=== PATIENT | female | born 1980 | race Caucasian/White ===

== ENCOUNTER → 2016-12-16 | Outpatient (CLI) | payer BC ==
[~2016-12-16] MED LIST: AMOX875T PO; CETI10TA84 PO; ESCI1TAB9 PO; FEXO1TAB46 PO; HYDR12.56 PO; IPRA1AER2 INH; MOME100A INH; MOME200A INH; MONT1TAB3 PO; NASONEX; NORE5TAB5 PO; OMEP20CA9 PO; RANI300T PO; SPRIN/30 INH
== END | disposition home or self-care (01) ==
LOC: C.LAB 07:34
PROVIDERS: ATTEND Nutritionist
DX: R53.83 Other fatigue (principal)

== ENCOUNTER 2017-02-03 20:26 | Emergency (ER) | payer BC ==
[~2017-02-03] VITALS: Ht 170.2 cm; Wt 59.1 kg
[~2017-02-03 20:26] MED LIST changes: -CETI10TA84 PO; -MOME200A INH; -NASONEX; -NORE5TAB5 PO; -SPRIN/30 INH
[2017-02-03 20:40] VITALS: TEMP 36.8; Ht 170.2 cm; Wt 59.1 kg
[2017-02-03] MEDS ORDERED: MOME200A INH (21:05)
[2017-02-03] MEDS ORDERED: SPRIN/30 INH (21:07)
[2017-02-03 21:26] LABS: HEMATOCRIT 38.2 % (37-47); MEAN PLATELET VOLUME 12.5 fL (7.4-10.4); PLATELET COUNT 127 K/uL (130-400); RED BLOOD COUNT 3.82 M/uL (4.2-5.4); WHITE BLOOD COUNT 6.34 K/uL (4.8-10.8)
[2017-02-03 21:41] LABS: BUN/CREATININE RATIO 23.9 (10-20); CALCIUM 8.4 mg/dl (8.5-10.1); CREATININE 0.89 mg/dl (0.60-1.20); POTASSIUM 3.5 mmol/L (3.5-5.1)
[2017-02-03 21:50] LABS: BASO % 0.2 %; BASO ABS # 0.01 K/uL (0-0.2); COMPLETE YES; EOS % 0.6 %; IG% 0.2 %; LARGE PLATELETS 1+; LYMPH % 24.6 %; LYMPH ABS # 1.56 K/uL (1.2-3.4); MONO % 5.2 %; NEUT % 69.2 %
[2017-02-03] MEDS ORDERED: SODIUM CHLORIDE 0.9% 1000ML 1,000 ML IV STA (22:12)
--- NOTE | 2017-02-03 22:12 | DIAGNOSTIC IMAGING REPORT ---
ULTRASOUND RIGHT UPPER EXTREMITY VENOUS CLINICAL HISTORY: Right arm swelling. COMPARISON STUDY: No priors. TECHNIQUE: Real-time, grayscale, and color Doppler sonography of the deep veins of the right upper extremity is performed. Compression and augmentation were utilized. FINDINGS: There is no sonographic evidence of deep venous thrombosis identified in the right upper extremity. The right internal jugular, axillary, and brachial veins are patent and normally compressible. Normal venous waveforms and augmentation are seen within the right subclavian vein. The cephalic and basilic veins are clear. The visualized radial and ulnar veins are patent. There is soft tissue edema and fluid seen around an edematous appearing muscle at the site of pain. IMPRESSION: 1. There is no sonographic evidence of deep venous thrombosis identified in the right upper extremity. 2. Suspect muscular injury in the left upper extremity at the site of pain and swelling. Electronically signed by: Alejandro Brown M.D. 02/03/2017 10:10 PM Dictated Date/Time: 02/03/2017 10:09 PM
--- NOTE | 2017-02-04 00:25 | Medical Consult ---
Consultation Date of Consultation: Feb 03, 2017. Attending Physician: Dr Bernabe Reason for Consultation: elevated CK History of Present Illness Sheri is a 36-year-old female, who is otherwise healthy, who presents with fatigue and are swelling today. She reports she was exercising, which she does often, but feels she may have overexerted herself last Tuesday, 4 days ago. She presents then she's been more fatigued than usual, though is still maintaining a normal appetite and water intake. She noticed today when she was bathing her 2 children that her right arm was more swollen than prior. She googled her symptoms and thought she may have rhabdomyolysis, so came to the ED. The ED PA was concerned she may have a blood clot, and completed an ultrasound which is negative for DVT of the arm. Her lab work showed an elevated CK of 7000. Due to this, medicine was consulted to evaluate for potential admission. The patient at time of being seen did not report any more pain in her arm. She was able to drink orally well. She denied any fevers, chills, night sweats, chest pain, shortness of breath. Her arm swelling had actually decreased in size. Past Medical/Surgical History None Family History No pertinent family history. Social History Smoking Status: Never Smoker Marital Status: Housing Status: lives with significant other Occupation Status: employed Allergies Coded Allergies: Aspirin (Verified Allergy, Intermediate, RASH/HIVES, 02/03/17) Butalbital (Verified Allergy, Intermediate, RASH/HIVES, 02/03/17) Dust (Verified Allergy, Mild, DUST MITE, ALLERGY SX, 02/03/17) POLLEN (Verified Allergy, Mild, ALLERGY SX, 02/03/17) Sulfa Drugs (Verified Allergy, Mild, RASH; HIVES, 02/03/17) Erythromycin (Unverified Adverse Reaction, Mild, STOMACH UPSET, 02/03/17) Uncoded Allergies: SNAILS (Adverse Reaction, Severe, VIOLENT N/V, 02/17/14) Home Medications Reported Home Medications Medications Dose Route/Sig Max Daily Dose Days Date Category Spiriva Handihaler (Tiotropium [place]) 30 Puff/540 Mcg Aerp 2 Cap INH DAILY 02/03/17 Reported Dulera 200/5 Mcg (Mometasone Furoate-Formoterol) 1 Aer Aer 2 Puffs INH BID PRN 30 02/03/17 Reported Review of Systems See HPI for pertinent positives & negatives. A total of 10 systems reviewed and were otherwise negative. Physical Exam Date Time Temp Pulse Resp B/P Pulse Ox O2 Delivery O2 Flow Rate FiO2 02/03/17 22:55 58 16 113/78 100 Room Air 02/03/17 20:40 36.8 63 20 113/75 100 Room Air GENERAL: Awake, alert, well-appearing, in no acute distress HENT: Normocephalic, atraumatic. Oropharynx unremarkable. EYES: Normal conjunctiva. Sclera non-icteric. NECK: Supple. No nuchal rigidity. FROM. No JVD. RESPIRATORY: Clear to auscultation. CARDIAC: Regular rate, normal rhythm. Extremities warm and well perfused. Pulses equal. ABDOMEN: Soft, non-distended. No tenderness to palpation. No rebound or guarding. No masses. RECTAL: Deferred. MUSCULOSKELETAL: Chest examination reveals no tenderness. The back is symmetrical on inspection without obvious abnormality. There is no CVA tenderness to palpation. No visible edema to right biceps, but tenderness to palpation. LOWER EXTREMITIES: Calves are equal size bilaterally and non-tender. No edema. No discoloration. NEURO: Normal sensorium. No sensory or motor deficits noted. SKIN: No rash or jaundice noted. Laboratory Results Last 24 Hours Test 02/03/17 21:10 02/04/17 00:13 White Blood Count 6.34 K/uL Red Blood Count 3.82 M/uL Hemoglobin 13.0 g/dL Hematocrit 38.2 % Mean Corpuscular Volume 100.0 fL Mean Corpuscular Hemoglobin 34.0 pg Mean Corpuscular Hemoglobin Concent 34.0 g/dl Platelet Count 127 K/uL Mean Platelet Volume 12.5 fL Neutrophils (%) (Auto) 69.2 % Lymphocytes (%) (Auto) 24.6 % Monocytes (%) (Auto) 5.2 % Eosinophils (%) (Auto) 0.6 % Basophils (%) (Auto) 0.2 % Neutrophils # (Auto) 4.39 K/uL Lymphocytes # (Auto) 1.56 K/uL Monocytes # (Auto) 0.33 K/uL Eosinophils # (Auto) 0.04 K/uL Basophils # (Auto) 0.01 K/uL RDW Standard Deviation 46.7 fL RDW Coefficient of Variation 12.7 % Immature Granulocyte % (Auto) 0.2 % Immature Granulocyte # (Auto) 0.01 K/uL Large Platelets 1+ Erythrocyte Sedimentation Rate 2 mm/hr Sodium Level 139 mmol/L Potassium Level 3.5 mmol/L Chloride Level 105 mmol/L Carbon Dioxide Level 29 mmol/L Anion Gap 5.0 mmol/L Blood Urea Nitrogen 21 mg/dl Creatinine 0.89 mg/dl Est Creatinine Clear Calc Drug Dose 80.0 ml/min Estimated GFR () 95.3 Estimated GFR (Non- 82.2 BUN/Creatinine Ratio 23.9 Random Glucose 89 mg/dl Calcium Level 8.4 mg/dl Total Creatine Kinase 7222 U/L Creatine Kinase MB 3.2 ng/ml Creatine Kinase MB Ratio 0.0 Assessment & Plan 36 yo otherwise healthy female, who presents with elevated CK level after exercise - differential includes rhabdomyolysis but has normal kidney function and is not on any nephrotoxic medications, and is tolerating PO fluids with good urine output. Recommendations: IV fluid rehydration, both IV and oral Recheck a BMP and CK level If improved, can be discharged home with outpatient follow up. Assessment and Plan Attending Addendum: I have physically seen and examined this patient, have directed their medical care, have supervised the medical residents activities, and agree with the H&P as noted above, with the following changes: The patient is awake, well-developed and adequately nourished, alert and oriented 3, normocephalic and atraumatic, lying in bed and in no acute distress. HEENT--PERRL, EOMI, mucous membranes and oropharynx dry. Neck--supple, no JVD or bruits, thyroid normal, trachea midline, no adenopathy. Heart--normal S1 and S2, no extra beats, no murmurs, rubs or gallops. Lungs--clear bilaterally with good air movement, no respiratory distress, no accessory muscle use. Abdomen--normal bowel sounds and soft, nontender and nondistended, no hernias or masses, no organomegaly. Extremities--bilateral lower extremity no cyanosis, clubbing or edema. There are good distal pulses b/l. Right upper extremity with lymphedema. Dermatologic--normal skin turgor, normal color, warm and dry, no abnormal lymph nodes, no rash. Neurologic--cranial nerves II through XII grossly intact, motor and sensory examination normal. Rheumatologic--normal range of motion, nontender, muscles and joints. Psychiatric--normal affect. Assessment and Plan: Elevated Creatine Kinase--patient's initial CK was 7222. After she was given a liter of IV fluid and 500 mL of water, her follow-up CK was down to 900. Kidney functions completely normal. She has not made the criteria for rhabdomyolysis. She can be safely discharged to home with continued progressive intake of fluids and avoid a significant lifting until seen by her PCP follow-up at her earliest convenience.
[2017-02-04 00:39] LABS: BUN/CREATININE RATIO 24.9 (10-20); CALCIUM 8.1 mg/dl (8.5-10.1); CREATININE 0.72 mg/dl (0.60-1.20); POTASSIUM 3.5 mmol/L (3.5-5.1)
--- NOTE | 2017-02-04 00:45 | EMERGENCY ROOM VISIT NOTE ---
ED Visit Note First contact with patient: 20:51 Chief Complaint: Right upper arm pain. History of Present Illness: Ms. Mckeon is a 36-year-old white female who ambulates into the ED complaining of right upper arm pain and swelling. Patient reports she has been feeling well over the last few days. Approximate 2 hours before she arrived in the emergency department she noted right upper arm pain and swelling while giving her children a bath. She places her discomfort through the anterior aspect of the right upper arm and extending distally to the proximal forearm. She describes her discomfort as an achy sensation. She rates her discomfort 4/10. Her pain is nonradiating. Her pain worsens with the last few degrees of extension and palpation of the biceps. She has not identified any alleviating factors related to the pain. She has not taken any medications for pain prior to arrival at the hospital. Associated with her pain she reports she has noted some swelling in the area, finger tip paresthesias and palpitations. She denies fevers, chills, sweats, skin eruptions, skin color changes, recent direct or repetitive trauma, headache, cough, wheezing, shortness of breath, chest pain, previous clots, claudication, cramping, recent surgery/inactivity/ extended travel, tobacco and estrogen use, decreased appetite, nausea, vomiting , right upper extremity weakness. Additionally she does report that she works out lifts weights; the last time was 4 days ago but did not think it was really stressful. Review of Systems: As noted above in history of present illness. All body systems were reviewed and found to be negative as noted above. Past Medical History: Asthma, bronchitis, pneumonia, status post tubal ligation , umbilical hernia repair, tonsillectomy and tympanic membranes repair. Current Medications: Spiriva, Dulera. Allergies to Medications: Aspirin, erythromycin, sulfa, butalbital. Social History: Patient is not employed; she lives with her and feels safe in her home environment; she denies tobacco use and admits to social alcohol use. Physical Examination: Vital Signs: Date Time Temp Pulse Resp B/P Pulse Ox O2 Delivery O2 Flow Rate FiO2 02/03/17 22:55 58 16 113/78 100 Room Air 02/03/17 20:40 36.8 63 20 113/75 100 Room Air GENERAL: 36-year-old female in mild distress due to pain, nontoxic-appearing, afebrile and hemodynamically stable. NEUROLOGICAL: Awake, alert and oriented to person, place and time. Answering questions appropriately and following commands. Normal gait. Good hand eye coordination. No focal motor or sensory deficits. SKIN: Warm, dry and pink. No soft tissue eruptions or trauma noted. BACK: No tenderness over the bony cervical and thoracic spine. No tenderness throughout the paraspinous muscles. THORAX: Lungs sounds are clear to auscultation and equal bilaterally with symmetrical chest wall. No crepitus, tenderness, subcutaneous air or deformities noted. HEART: Regular rate and rhythm. No gallops, rubs or murmurs are appreciated. RIGHT UPPER EXTREMITY: No gross bony deformity. No tenderness over the bony structures of the shoulder, upper arm, elbow, forearm or wrist. Moderate swelling and tenderness over the biceps without erythema. No tenderness over the biceps tendon appear intact. No soft tissue injuries noted. No signs of cellulitis. Full range of motion in all movements of the shoulder, forearm and wrist. Slight decreased range of motion in extension of the elbow but she does have full flexion. 4/5 muscle strength of all movements of the shoulder, elbow , forearm and wrist. Throughout the arm and hand the skin was warm and pink and capillary refill is brisk. She was able to distinguish light sensations through all dermatomes of the hand. ED Course: Patient is assessed as noted above. Laboratory Testing: Test 02/03/17 21:10 02/04/17 00:13 Range/Units White Blood Count 6.34 4.8-10.8 K/uL Red Blood Count 3.82 4.2-5.4 M/uL Hemoglobin 13.0 12.0-16.0 g/dL Hematocrit 38.2 37-47 % Mean Corpuscular Volume 100.0 80-100 fL Mean Corpuscular Hemoglobin 34.0 25-34 pg Mean Corpuscular Hemoglobin Concent 34.0 32-36 g/dl Platelet Count 127 130-400 K/uL Mean Platelet Volume 12.5 7.4-10.4 fL Neutrophils (%) (Auto) 69.2 % Lymphocytes (%) (Auto) 24.6 % Monocytes (%) (Auto) 5.2 % Eosinophils (%) (Auto) 0.6 % Basophils (%) (Auto) 0.2 % Neutrophils # (Auto) 4.39 1.4-6.5 K/uL Lymphocytes # (Auto) 1.56 1.2-3.4 K/uL Monocytes # (Auto) 0.33 0.11-0.59 K/uL Eosinophils # (Auto) 0.04 0-0.5 K/uL Basophils # (Auto) 0.01 0-0.2 K/uL RDW Standard Deviation 46.7 36.4-46.3 fL RDW Coefficient of Variation 12.7 11.5-14.5 % Immature Granulocyte % (Auto) 0.2 % Immature Granulocyte # (Auto) 0.01 0.00-0.02 K/uL Large Platelets 1+ Erythrocyte Sedimentation Rate 2 0-21 mm/hr Sodium Level 139 139 136-145 mmol/L Potassium Level 3.5 3.5 3.5-5.1 mmol/L Chloride Level 105 106 98-107 mmol/L Carbon Dioxide Level 29 26 21-32 mmol/L Anion Gap 5.0 7.0 3-11 mmol/L Blood Urea Nitrogen 21 18 7-18 mg/dl Creatinine 0.89 0.72 0.60-1.20 mg/dl Est Creatinine Clear Calc Drug Dose 80.0 98.8 ml/min Estimated GFR () 95.3 123.1 Estimated GFR (Non- 82.2 106.2 BUN/Creatinine Ratio 23.9 24.9 10-20 Random Glucose 89 81 70-99 mg/dl Calcium Level 8.4 8.1 8.5-10.1 mg/dl Total Creatine Kinase 7222 26-192 U/L Creatine Kinase MB 3.2 0.5-3.6 ng/ml Creatine Kinase MB Ratio 0.0 0-3.0 Venous Doppler Ultrasound: Was reviewed by myself and read by the radiologist showing no evidence of deep vein thrombus but suspected muscle injury was noted by the radiologist. Patient was hydrated with normal saline; she was offered pain medications and she refused. Patient's case was reviewed with Dr. Serra; we agreed on diagnostic approach , treatment, disposition and plan. Patient's case was [facility] with case [facility]. Patient was educated about tonight's findings. Clinical Impression: Rhabdomyolysis. Decision-Making: Initially my differential diagnosis I considered muscle strain , tendinitis, bursitis, rhabdomyolysis, DVT and other causes. Disposition and Plan: Patient's care was transferred to the hospitalist; please see their notes and orders for final disposition and plan.
[2017-02-04 01:22] VITALS: BP 103/63; PULSE 60; O2SAT 98
[2017-04-24] MEDS ORDERED: NASONEX (14:00)
[2017-04-24] MEDS ORDERED: NORE5TAB5 PO (14:00)
[2017-04-24] MEDS ORDERED: CETI10TA84 PO (14:00)
== END 2017-02-04 01:22 | disposition home or self-care (01) ==
LOC: C.EDB 20:28
DX: M62.82 Rhabdomyolysis (principal); J45.909 Unspecified asthma, uncomplicated; Z98.51 Tubal ligation status

== ENCOUNTER → 2017-02-05 | Outpatient (CLI) | payer BC ==
[~2017-02-05] MED LIST changes: -AMOX875T PO; +CETI10TA84 PO; -ESCI1TAB9 PO; -FEXO1TAB46 PO; -HYDR12.56 PO; -IPRA1AER2 INH; -MOME100A INH; +MOME200A INH; -MONT1TAB3 PO; +NASONEX; +NORE5TAB5 PO; -OMEP20CA9 PO; -RANI300T PO; +SPRIN/30 INH
[2017-02-05 12:42] LABS: BLOOD UREA NITROGEN 11 mg/dl (7-18); BUN/CREATININE RATIO 17.1 (10-20); CALCIUM 8.8 mg/dl (8.5-10.1); CARBON DIOXIDE 31 mmol/L (21-32); CHLORIDE 103 mmol/L (98-107); CREATININE 0.66 mg/dl (0.60-1.20); GLUCOSE 82 mg/dl (70-99); POTASSIUM 4.1 mmol/L (3.5-5.1); SODIUM 140 mmol/L (136-145)
== END | disposition home or self-care (01) ==
LOC: C.LAB 10:23
PROVIDERS: ATTEND Family Medicine
DX: M62.82 Rhabdomyolysis (principal)

== ENCOUNTER → 2017-03-11 | Outpatient (CLI) | payer BC ==
[2017-03-11 12:15] LABS: HEMATOCRIT 41.8 % (37-47)
[2017-03-11 12:52] LABS: PROLACTIN 4.87 ng/mL
== END | disposition home or self-care (01) ==
LOC: C.LAB 11:18
PROVIDERS: ATTEND Obstetrics & Gynecology
DX: N92.0 Excessive and frequent menstruation with regular cycle (principal)

== ENCOUNTER → 2017-04-23 | Outpatient (CLI) | payer BC ==
[2017-04-23 14:22] LABS: BASO % 0.2 %; BASO ABS # 0.01 K/uL (0-0.2); EOS % 1.3 %; IG% 0.2 %; LYMPH % 24.3 %; LYMPH ABS # 1.34 K/uL (1.2-3.4); MEAN CELL VOLUME 100.5 fL (80-100); MEAN CORPUSCULAR HEMOGLOBIN 33.3 pg (25-34); MEAN PLATELET VOLUME 12.2 fL (7.4-10.4); PLATELET COUNT 144 K/uL (130-400); RED BLOOD COUNT 4.08 M/uL (4.2-5.4); WHITE BLOOD COUNT 5.51 K/uL (4.8-10.8)
[2017-04-23 14:27] LABS: MANUAL MICROSCOPIC REQUIRED? NO; REVIEW REQ? NO; URINE APPEARANCE CLEAR (CLEAR); URINE BILIRUBIN NEG (NEG); URINE COLOR YELLOW; URINE EPITHELIAL CELL AUTO 0-5 /lpf (0-5); URINE NITRITE NEG (NEG); URINE SPECIFIC GRAVITY 1.015 (1.000-1.030); UROBILINOGEN NEG (NEG)
[2017-04-23 14:39] LABS: COMPLETE YES; MEAN CORPUSCULAR HGB CONC 33.2 g/dl (32-36)
[2017-04-23 14:43] LABS: ALT/SGPT 132 U/L (12-78); AST/SGOT 520 U/L (15-37); BLOOD UREA NITROGEN 11 mg/dl (7-18); BUN/CREATININE RATIO 13.8 (10-20); CALCIUM 8.5 mg/dl (8.5-10.1); CARBON DIOXIDE 29 mmol/L (21-32); CHLORIDE 108 mmol/L (98-107); CREATININE 0.79 mg/dl (0.60-1.20); GLUCOSE 87 mg/dl (70-99); POTASSIUM 4.3 mmol/L (3.5-5.1); SODIUM 144 mmol/L (136-145)
[2017-04-23 16:03] LABS: ALB/GLOB RATIO 1.2 (0.9-2); ALKALINE PHOSPHATASE 52 U/L (45-117)
== END | disposition home or self-care (01) ==
LOC: C.LAB 13:44
PROVIDERS: ATTEND Nurse Practitioner
DX: R60.0 Localized edema (principal)

== ENCOUNTER 2017-04-24 13:12 | Inpatient (IN) | payer BC ==
[~2017-04-24] VITALS: Ht 170.2 cm; Wt 59.6 kg
[~2017-04-24 13:12] MED LIST changes: -CETI10TA84 PO; -NASONEX; -NORE5TAB5 PO
[2017-04-24] MEDS ORDERED: SODIUM CHLORIDE 0.9% 1000ML 2,000 ML IV STA (13:30)
[2017-04-24 13:53] LABS: BASO % 0.2 %; BASO ABS # 0.01 K/uL (0-0.2); COMPLETE YES; EOS % 1.2 %; HEMATOCRIT 39.7 % (37-47); IG% 0.2 %; LYMPH % 21.5 %; LYMPH ABS # 1.06 K/uL (1.2-3.4); MEAN CORPUSCULAR HEMOGLOBIN 33.2 pg (25-34); MEAN CORPUSCULAR HGB CONC 33.2 g/dl (32-36); MEAN PLATELET VOLUME 11.8 fL (7.4-10.4); MONO % 7.5 %; NEUT % 69.4 %; PLATELET COUNT 125 K/uL (130-400); RED BLOOD COUNT 3.97 M/uL (4.2-5.4); WHITE BLOOD COUNT 4.94 K/uL (4.8-10.8)
[2017-04-24] MEDS ORDERED: NORE5TAB5 PO ×2 (14:00)
[2017-04-24] MEDS ORDERED: NASONEX ×2 (14:00)
[2017-04-24] MEDS ORDERED: CETI10TA84 PO ×2 (14:00)
--- NOTE | 2017-04-24 14:04 | EMERGENCY ROOM VISIT NOTE ---
History Report prepared by Tosin: Yobany Anderson Under the Supervision of: Dr. Ivan Serra M.D. First contact with patient: 13:20 Chief Complaint: ABNORMAL LABS Stated Complaint: ELEVATED CK LEVELS, SWOLLEN LEGS History of Present Illness The patient is a 36 year old female who presents to the Emergency Room with complaints of persistent bilateral lower extremity swelling starting 2 days ago. She had blood work yesterday which showed an elevated CK level. She had been doing leg workout last week with weights but denies overdoing it. She has a history of similar symptoms occurring a few months ago with elevated CK levels. She had been exercising regularly at that time as well. She reports a normal appetite and a normal fluid intake. The patient denies nausea, vomiting, urinary symptoms, blood in urine, or any other complaints. She denies any history of kidney problems. She has a history of asthma. Source of History: patient Onset: 2 days ago Position: other (bilateral lower extremities) Quality: other (swelling) Timing: other (persistent) Associated Symptoms: No nausea, No vomiting, No urinary symptoms Review of Systems See HPI for pertinent positives & negatives. A total of 10 systems reviewed and were otherwise negative. Past Medical & Surgical Medical Problems: (1) Abnormal liver enzymes (2) Asthma (3) Elevated CK (4) Pneumonia (5) Pneumonia (6) Rhabdomyolysis (7) Right otitis media Family History Patient reports no known family medical history. Social History Smoking Status: Never Smoker Marital Status: Housing Status: lives with significant other Occupation Status: employed Current/Historical Medications Scheduled Cetirizine (Zyrtec), 10 MG PO DAILY Norethindrone (Aygestin), 5 MG PO DAILY Tiotropium [place] (Spiriva Handihaler), 1 CAP INH DAILY [Nasonex], 1 SPRAY NA DAILY Scheduled PRN Mometasone Furoate-Formoterol (Dulera 200/5 Mcg), 2 PUFFS INH BID PRN for Shortness of Breath Allergies Coded Allergies: Aspirin (Verified Allergy, Intermediate, RASH/HIVES, 04/24/17) Butalbital (Verified Allergy, Intermediate, RASH/HIVES, 04/24/17) Dust (Verified Allergy, Mild, DUST MITE, ALLERGY SX, 04/24/17) POLLEN (Verified Allergy, Mild, ALLERGY SX, 04/24/17) Sulfa Drugs (Verified Allergy, Mild, RASH; HIVES, 04/24/17) Erythromycin (Unverified Adverse Reaction, Mild, STOMACH UPSET, 04/24/17) Uncoded Allergies: SNAILS (Adverse Reaction, Severe, VIOLENT N/V, 02/17/14) Physical Exam Vital Signs Date Time Temp Pulse Resp B/P (MAP) Pulse Ox O2 Delivery O2 Flow Rate FiO2 04/24/17 15:42 74 19 04/24/17 15:12 75 18 04/24/17 15:02 120/75 04/24/17 14:42 78 16 04/24/17 14:32 127/89 04/24/17 14:12 80 20 04/24/17 14:02 109/73 04/24/17 13:50 70 04/24/17 13:43 112/76 04/24/17 13:15 36.7 83 18 122/75 97 Room Air Physical Exam GENERAL: Patient is well appearing and in no acute distress. HEENT: No acute trauma, normocephalic atraumatic, mucous membranes moist, no nasal congestion, no scleral icterus. NECK: No stridor, no adenopathy, no meningismus, trachea is midline. LUNGS: No dyspnea. Clear to auscultation and equal bilaterally. No wheeze, no rhonchi. HEART: Regular rate and rhythm. No murmurs, rubs, gallops appreciated. ABDOMEN: Soft, nontender, bowel sounds positive, no masses appreciated, no peritonitis. BACK: No midline tenderness, no CVA tenderness EXTREMITIES: Normal motion all extremities, no cyanosis, no edema. NEUROLOGIC: Alert and oriented, no acute motor or sensory deficits, no focal weakness, cranial nerves grossly intact. SKIN: No rash, no jaundice, no diaphoresis. Medical Decision & Procedures ER Provider Diagnostic Interpretation: US results as stated below per interpretation by me and the radiologist: BILIARY ULTRASOUND CLINICAL HISTORY: Elevated LFTs COMPARISON STUDY: 05/31/2014 FINDINGS: The pancreas appears sonographically normal. The gallbladder appears sonographically normal. The liver appears sonographically normal. There is no ductal dilatation. The common bile duct measures 4 mm. There is no significant right-sided hydronephrosis. IMPRESSION: Normal biliary ultrasound. Electronically signed by: Steve Lorenzo M.D. 04/24/2017 5:35 PM Dictated Date/Time: 04/24/2017 5:34 PM EXAMINATION: RENAL ULTRASOUND CLINICAL HISTORY: Rhabdomyolysis. Renal injury. COMPARISON STUDY: 05/31/2014 FINDINGS: The right kidney measures 11.5 cm. The left kidney measures 13.3 cm. There is mild prominence of the right renal pelvis. There is no calyceal dilatation. There are no renal masses. No bladder abnormalities are visualized. Bilateral ureteral jets were visualized. There is a small calcification posterior to the bladder. IMPRESSION : 1. Mild prominence of the right renal pelvis 2. No significant obstruction as bilateral ureteral jets were visualized 3. No renal masses identified Electronically signed by: Steve Lorenzo M.D. 04/24/2017 5:34 PM Dictated Date/Time: 04/24/2017 5:31 PM Laboratory Results 04/24/17 13:40 Red Blood Count 3.97, Mean Corpuscular Volume 100.0, Mean Corpuscular Hemoglobin 33.2, Mean Corpuscular Hemoglobin Concent 33.2, Mean Platelet Volume 11.8, Neutrophils (%) (Auto) 69.4, Lymphocytes (%) (Auto) 21.5, Monocytes (%) ( Auto) 7.5, Eosinophils (%) (Auto) 1.2, Basophils (%) (Auto) 0.2, Neutrophils # ( Auto) 3.43, Lymphocytes # (Auto) 1.06, Monocytes # (Auto) 0.37, Eosinophils # ( Auto) 0.06, Basophils # (Auto) 0.01 04/24/17 13:40 Test 04/24/17 13:40 04/24/17 13:45 White Blood Count 4.94 K/uL (4.8-10.8) Red Blood Count 3.97 M/uL (4.2-5.4) Hemoglobin 13.2 g/dL (12.0-16.0) Hematocrit 39.7 % (37-47) Mean Corpuscular Volume 100.0 fL (80-100) Mean Corpuscular Hemoglobin 33.2 pg (25-34) Mean Corpuscular Hemoglobin Concent 33.2 g/dl (32-36) Platelet Count 125 K/uL (130-400) Mean Platelet Volume 11.8 fL (7.4-10.4) Neutrophils (%) (Auto) 69.4 % Lymphocytes (%) (Auto) 21.5 % Monocytes (%) (Auto) 7.5 % Eosinophils (%) (Auto) 1.2 % Basophils (%) (Auto) 0.2 % Neutrophils # (Auto) 3.43 K/uL (1.4-6.5) Lymphocytes # (Auto) 1.06 K/uL (1.2-3.4) Monocytes # (Auto) 0.37 K/uL (0.11-0.59) Eosinophils # (Auto) 0.06 K/uL (0-0.5) Basophils # (Auto) 0.01 K/uL (0-0.2) RDW Standard Deviation 46.2 fL (36.4-46.3) RDW Coefficient of Variation 12.6 % (11.5-14.5) Immature Granulocyte % (Auto) 0.2 % Immature Granulocyte # (Auto) 0.01 K/uL (0.00-0.02) Prothrombin Time 10.2 SECONDS (9.0-12.0) Prothromb Time International Ratio 1.0 (0.9-1.1) Anion Gap 8.0 mmol/L (3-11) Est Creatinine Clear Calc Drug Dose 88.6 ml/min Estimated GFR () 106.8 Estimated GFR (Non- 92.1 BUN/Creatinine Ratio 14.3 (10-20) Calcium Level 8.3 mg/dl (8.5-10.1) Magnesium Level 2.2 mg/dl (1.8-2.4) Total Bilirubin 0.4 mg/dl (0.2-1) Direct Bilirubin 0.1 mg/dl (0-0.2) Aspartate Amino Transf (AST/SGOT) 513 U/L (15-37) Alanine Aminotransferase (ALT/SGPT) 149 U/L (12-78) Alkaline Phosphatase 55 U/L (45-117) Total Creatine Kinase 01745 U/L (26-192) Total Protein 6.6 gm/dl (6.4-8.2) Albumin 3.6 gm/dl (3.4-5.0) Hepatitis B Surface Antigen NEG (NEG) Hepatitis C Antibody NEG (NEG) Urine Color YELLOW Urine Appearance CLEAR (CLEAR) Urine pH 7.5 (4.5-7.5) Urine Specific [place] 1.009 (1.000-1.030) Urine Protein NEG (NEG) Urine Glucose (UA) NEG (NEG) Urine Ketones NEG (NEG) Urine Occult Blood NEG (NEG) Urine Nitrite NEG (NEG) Urine Bilirubin NEG (NEG) Urine Urobilinogen NEG (NEG) Urine Leukocyte Esterase NEG (NEG) Urine WBC (Auto) 0 /hpf (0-5) Urine RBC (Auto) 0-4 /hpf (0-4) Urine Hyaline Casts (Auto) 0 /lpf (0-5) Urine Epithelial Cells (Auto) 0-5 /lpf (0-5) Urine Bacteria (Auto) NEG (NEG) Urine Opiates Screen NEG (NEG) Urine Methadone, Qualitative NEG (NEG) Urine Barbiturates NEG (NEG) Urine Phencyclidine (PCP) Level NEG (NEG) Ur Amphetamine/Methamphetamine NEG (NEG) MDMA (Ecstasy) Screen NEG (NEG) Urine Benzodiazepines Screen NEG (NEG) Urine Cocaine Metabolite NEG (NEG) Urine Marijuana (THC) NEG (NEG) Laboratory results as reviewed by me. Medications Administered Medications (Trade) Dose Ordered Sig/Susan Route Start Time Stop Time Status Last Admin Dose Admin Sodium Chloride 2,000 ml @ 999 mls/hr Q2H1M STAT IV 04/24/17 13:30 04/24/17 15:30 DC 04/24/17 13:51 999 MLS/HR ED Course 1320: The patient was evaluated in room B08. A complete history and physical exam was performed. 1330: Sodium Chloride 2000 ml @ 999 mls/hr IV 1520: Upon reevaluation, the patient feels better. Discussed results and treatment plan with the patient. She verbalized understanding and agreement with the treatment plan. I discussed the patient's case with Dr. Bernabe, from [facility] Hospitalist Service. He asked that I order ultrasound of liver and kidneys. The patient will be evaluated for further management. Medical Decision Medication Reconciliation: I attest that I have personally reviewed the patient 's current medication list. Blood pressure screening: Patient was found to have an elevated blood pressure and was referred to the hospitalist for recheck and further treatment. Pleasant 36 yr old female arrives with complaint of elevated CK. Hard work out just a few days ago and not feeling well so PCP did labs revealing elevated CK, as well as elevated LFTs. Labs similar to yesterday's. No evidence renal failure. US liver/kidney unremarkable other than some mild right renal pelvis fullness of non-specific reason. Does take supplements but none sound like they are cause, and she had this similar problem 2 months ago and was not on those supplements at that time. No evidence of breathing issues. Does not drink alcohol per patient nor friend on regular basis. Consults Time Called: [id number] Consulting Physician: Dr. Bernabe, from [facility] Service Returned Call: [id number] I discussed the patient's [facility] He asked that I order ultrasound of liver and kidneys. Impression Primary Impression: Rhabdomyolysis Additional Impression: Elevated LFTs Scribe Attestation The scribe's documentation has been prepared under my direction and personally reviewed by me in its entirety. I confirm that the note above accurately reflects all work, treatment, procedures, and medical decision making performed by me. Departure Information Dispostion Being Evaluated By Hospitalist Referrals Marci Luna D.O. (PCP) Patient Instructions My [facility] [address] Health Problem Qualifiers
[2017-04-24 14:07] LABS: URINE APPEARANCE CLEAR (CLEAR); URINE BILIRUBIN NEG (NEG); URINE COLOR YELLOW; URINE EPITHELIAL CELL AUTO 0-5 /lpf (0-5); URINE NITRITE NEG (NEG); URINE PH 7.5 (4.5-7.5); URINE SPECIFIC GRAVITY 1.009 (1.000-1.030); UROBILINOGEN NEG (NEG); ZZUR CULT IF INDIC CLEAN CATCH NO
[2017-04-24 14:10] LABS: MANUAL MICROSCOPIC REQUIRED? NO; REVIEW REQ? NO
[2017-04-24 14:11] LABS: BUN/CREATININE RATIO 14.3 (10-20); CALCIUM 8.3 mg/dl (8.5-10.1); CREATININE 0.81 mg/dl (0.60-1.20); MAGNESIUM 2.2 mg/dl (1.8-2.4); POTASSIUM 3.7 mmol/L (3.5-5.1)
[2017-04-24] MEDS ORDERED: BUDESONIDE/FORMOTEROL FUMARATE 160/4.5 60 PUFFS/INHALER INH PRN (15:45)
[2017-04-24 15:54] LABS: PROTHROMBIN TIME (PATIENT) 10.2 SECONDS (9.0-12.0)
[2017-04-24] MEDS ORDERED: ONDANSETRON INJ 2 MG/ML 2 ML VIAL IV PRN (16:00)
[2017-04-24 16:20] VITALS: O2SAT 97; Ht 170.2 cm; Wt 59.6 kg
[2017-04-24 17:07] LABS: BENZODIAZEPINE, URINE NEG (NEG); COCAINE,URINE NEG (NEG); PHENCYCLIDINE, URINE NEG (NEG)
--- NOTE | 2017-04-24 17:35 | DIAGNOSTIC IMAGING REPORT ---
EXAMINATION: RENAL ULTRASOUND CLINICAL HISTORY: Rhabdomyolysis. Renal injury. COMPARISON STUDY: 05/31/2014 FINDINGS: The right kidney measures 11.5 cm. The left kidney measures 13.3 cm. There is mild prominence of the right renal pelvis. There is no calyceal dilatation. There are no renal masses. No bladder abnormalities are visualized. Bilateral ureteral jets were visualized. There is a small calcification posterior to the bladder. IMPRESSION : 1. Mild prominence of the right renal pelvis 2. No significant obstruction as bilateral ureteral jets were visualized 3. No renal masses identified Electronically signed by: Steve Lorenzo M.D. 04/24/2017 5:34 PM Dictated Date/Time: 04/24/2017 5:31 PM
--- NOTE | 2017-04-24 17:37 | DIAGNOSTIC IMAGING REPORT ---
BILIARY ULTRASOUND CLINICAL HISTORY: Elevated LFTs COMPARISON STUDY: 05/31/2014 FINDINGS: The pancreas appears sonographically normal. The gallbladder appears sonographically normal. The liver appears sonographically normal. There is no ductal dilatation. The common bile duct measures 4 mm. There is no significant right-sided hydronephrosis. IMPRESSION: Normal biliary ultrasound. Electronically signed by: Steve Lorenzo M.D. 04/24/2017 5:35 PM Dictated Date/Time: 04/24/2017 5:34 PM
[2017-04-24 17:39] VITALS: BP 107/75; PULSE 69; TEMP 36.9; O2SAT 100
[2017-04-24] MEDS: NSS + 20MEQ KCL 1000ML 1,000 ML IV SCH ×2 (18:51→23:07)
--- NOTE | 2017-04-24 18:53 | History and Physical ---
History & Physical Date & Time of Service: Apr 24, 2017 at 18:52 Chief Complaint: Abnormal Liver Enzymes, Rhabdomyolysis Primary Care Physician: Marci Luna D.O. History of Present Illness Source: patient The patient is a 36-year-old female who presents emergency department with bilateral lower extremity swelling and pain that began about 2 days prior to arrival. She had blood work yesterday which showed elevated CK level that was thought to be due to doing a leg workup last week with weights. Similar episode happened a few months ago. She reports that both instances she was exercising regularly and not overdoing it. She denies any direct history of trauma. She does not drink alcohol, she is not taking any muscle building. Supplements. Past Medical/Surgical History Medical Problems: (1) Asthma Status: Chronic (2) Elevated CK Status: Resolved (3) Pneumonia Status: Resolved (4) Pneumonia Status: Resolved (5) Right otitis media Status: Resolved Family History Patient reports no known family medical history. Social History Smoking Status: Never Smoker Smokeless Tobacco Use: No Alcohol Use: none Drug Use: none Marital Status: Housing status: lives with family Occupational Status: employed Immunizations History of Influenza Vaccine: Unknown History of Tetanus Vaccine?: Unknown Multi-Drug Resistant Organisms History of MDRO: No Allergies Coded Allergies: Aspirin (Verified Allergy, Intermediate, RASH/HIVES, 04/24/17) Butalbital (Verified Allergy, Intermediate, RASH/HIVES, 04/24/17) Dust (Verified Allergy, Mild, DUST MITE, ALLERGY SX, 04/24/17) POLLEN (Verified Allergy, Mild, ALLERGY SX, 04/24/17) Sulfa Drugs (Verified Allergy, Mild, RASH; HIVES, 04/24/17) Erythromycin (Unverified Adverse Reaction, Mild, STOMACH UPSET, 04/24/17) Uncoded Allergies: SNAILS (Adverse Reaction, Severe, VIOLENT N/V, 02/17/14) Home Medications Scheduled Cetirizine (Zyrtec), 10 MG PO DAILY Norethindrone (Aygestin), 5 MG PO DAILY Tiotropium [place] (Spiriva Handihaler), 1 CAP INH DAILY [Nasonex], 1 SPRAY NA DAILY Scheduled PRN Mometasone Furoate-Formoterol (Dulera 200/5 Mcg), 2 PUFFS INH BID PRN for Shortness of Breath Review of Systems The patient denies chest pain, palpitations, shortness of breath, cough, lower extremity swelling, vision change, hearing change, sore throat, fevers, chills, sweats, weight change, fatigue, nausea, vomiting, abdominal pain, pelvic pain, blood in urine or stool, dysuria, urinary frequency or urgency, lightheadedness , dizziness, headache, memory loss, rash, abnormal bruising or bleeding, imbalance, focal or generalized weakness, numbness or tingling in arms or legs, night sweats, or allergy symptoms. The review of systems is otherwise negative other than for that already noted above, and at least 10 systems have been reviewed. Physical Exam Vital Signs Date Time Temp Pulse Resp B/P (MAP) Pulse Ox O2 Delivery O2 Flow Rate FiO2 04/24/17 17:39 36.9 69 16 107/75 (86) 100 Room Air 04/24/17 16:20 97 Room Air 04/24/17 16:12 67 18 97 04/24/17 15:42 74 19 04/24/17 15:12 75 18 04/24/17 15:02 120/75 04/24/17 14:42 78 16 04/24/17 14:32 127/89 04/24/17 14:12 80 20 04/24/17 14:02 109/73 04/24/17 13:50 70 04/24/17 13:43 112/76 04/24/17 13:15 36.7 83 18 122/75 97 Room Air The patient is awake, well-developed and adequately nourished, alert and oriented 3, normocephalic and atraumatic, lying in bed and in no acute distress. HEENT--PERRL, EOMI, mucous membranes and oropharynx dry. Neck--supple, no JVD or bruits, thyroid normal, trachea midline, no adenopathy. Heart--normal S1 and S2, no extra beats, no murmurs, rubs or gallops. Lungs--clear bilaterally with good air movement, no respiratory distress, no accessory muscle use. Abdomen--normal bowel sounds and soft, nontender and nondistended, no hernias or masses, no organomegaly. Extremities--no cyanosis, clubbing or edema. There are good distal pulses b/l. Dermatologic--normal skin turgor, normal color, warm and dry, no abnormal lymph nodes, no rash. Neurologic--cranial nerves II through XII grossly intact, motor and sensory examination normal. Rheumatologic--normal range of motion. Mild reproducible pain over muscles of lower extremity bilaterally. Psychiatric--normal affect. Diagnostics Laboratory Results Results Past 24 Hours Test 04/24/17 13:40 04/24/17 13:45 04/24/17 16:22 Range/Units White Blood Count 4.94 4.8-10.8 K/uL Red Blood Count 3.97 4.2-5.4 M/uL Hemoglobin 13.2 12.0-16.0 g/dL Hematocrit 39.7 37-47 % Mean Corpuscular Volume 100.0 80-100 fL Mean Corpuscular Hemoglobin 33.2 25-34 pg Mean Corpuscular Hemoglobin Concent 33.2 32-36 g/dl Platelet Count 125 130-400 K/uL Mean Platelet Volume 11.8 7.4-10.4 fL Neutrophils (%) (Auto) 69.4 % Lymphocytes (%) (Auto) 21.5 % Monocytes (%) (Auto) 7.5 % Eosinophils (%) (Auto) 1.2 % Basophils (%) (Auto) 0.2 % Neutrophils # (Auto) 3.43 1.4-6.5 K/uL Lymphocytes # (Auto) 1.06 1.2-3.4 K/uL Monocytes # (Auto) 0.37 0.11-0.59 K/uL Eosinophils # (Auto) 0.06 0-0.5 K/uL Basophils # (Auto) 0.01 0-0.2 K/uL RDW Standard Deviation 46.2 36.4-46.3 fL RDW Coefficient of Variation 12.6 11.5-14.5 % Immature Granulocyte % (Auto) 0.2 % Immature Granulocyte # (Auto) 0.01 0.00-0.02 K/uL Prothrombin Time 10.2 9.0-12.0 SECONDS Prothromb Time International Ratio 1.0 0.9-1.1 Sodium Level 144 136-145 mmol/L Potassium Level 3.7 3.5-5.1 mmol/L Chloride Level 108 98-107 mmol/L Carbon Dioxide Level 28 21-32 mmol/L Anion Gap 8.0 3-11 mmol/L Blood Urea Nitrogen 12 7-18 mg/dl Creatinine 0.81 0.60-1.20 mg/dl Est Creatinine Clear Calc Drug Dose 88.6 ml/min Estimated GFR () 106.8 Estimated GFR (Non- 92.1 BUN/Creatinine Ratio 14.3 10-20 Random Glucose 115 70-99 mg/dl Calcium Level 8.3 8.5-10.1 mg/dl Magnesium Level 2.2 1.8-2.4 mg/dl Total Bilirubin 0.4 0.2-1 mg/dl Direct Bilirubin 0.1 0-0.2 mg/dl Aspartate Amino Transf (AST/SGOT) 513 15-37 U/L Alanine Aminotransferase (ALT/SGPT) 149 12-78 U/L Alkaline Phosphatase 55 45-117 U/L Total Creatine Kinase 58981 26-192 U/L Total Protein 6.6 6.4-8.2 gm/dl Albumin 3.6 3.4-5.0 gm/dl Hepatitis B Surface Antigen NEG NEG Hepatitis C Antibody NEG NEG Urine Color YELLOW Urine Appearance CLEAR CLEAR Urine pH 7.5 4.5-7.5 Urine Specific [place] 1.009 1.000-1.030 Urine Protein NEG NEG Urine Glucose (UA) NEG NEG Urine Ketones NEG NEG Urine Occult Blood NEG NEG Urine Nitrite NEG NEG Urine Bilirubin NEG NEG Urine Urobilinogen NEG NEG Urine Leukocyte Esterase NEG NEG Urine WBC (Auto) 0 0-5 /hpf Urine RBC (Auto) 0-4 0-4 /hpf Urine Hyaline Casts (Auto) 0 0-5 /lpf Urine Epithelial Cells (Auto) 0-5 0-5 /lpf Urine Bacteria (Auto) NEG NEG Urine Opiates Screen NEG NEG Urine Methadone, Qualitative NEG NEG Urine Barbiturates NEG NEG Urine Phencyclidine (PCP) Level NEG NEG Ur Amphetamine/Methamphetamine NEG NEG MDMA (Ecstasy) Screen NEG NEG Urine Benzodiazepines Screen NEG NEG Urine Cocaine Metabolite NEG NEG Urine Marijuana (THC) NEG NEG Ethyl Alcohol mg/dL < 3.0 0-3 mg/dl Diagnostic Radiology Patient Name: DELISA CARR Unit Number: [id number] Dictated: 04/24/171730 Transcribed: 04/24/171730 ARG Printed Date/Time: [~ rep prt dt]/[~ rep prt tm] [~ rep ct labl] - [~ rep ct ivnm] [facility] Radiology Department [place], [place] [id number] Dictated: 04/24/171730 Transcribed: 04/24/171730 ARG Printed Date/Time: [~ rep prt dt]/[~ rep prt tm] [~ rep ct labl] - [~ rep ct ivnm] [~ rep ct add3]] EXAMINATION: RENAL ULTRASOUND CLINICAL HISTORY: Rhabdomyolysis. Renal injury. COMPARISON STUDY: 05/31/2014 FINDINGS: The right kidney measures 11.5 cm. The left kidney measures 13.3 cm. There is mild prominence of the right renal pelvis. There is no calyceal dilatation. There are no renal masses. No bladder abnormalities are visualized. Bilateral ureteral jets were visualized. There is a small calcification posterior to the bladder. IMPRESSION : 1. Mild prominence of the right renal pelvis 2. No significant obstruction as bilateral ureteral jets were visualized 3. No renal masses identified Electronically signed by: Steve Lorenzo M.D. 04/24/2017 5:34 PM Dictated Date/Time: 04/24/2017 5:31 PM The status of this report is Signed. Draft = Not yet reviewed or approved by Radiologist. Signed = Reviewed and approved by Radiologist. <AttendingPhy>Flavio Bernabe M.D.</AttendingPhy> <FamilyPhy>Marci Luna D.O.</FamilyPhy> <PrimaryPhy>Marci Luna D.O.</PrimaryPhy> <UnitNumber> [id number]</UnitNumber> <VisitNumber>[id number]</VisitNumber> <PatientName> CARRDELISA Barbara</PatientName> <DateOfBirth>1980</DateOfBirth> <Location> C.MS2W</Location> <ServiceDate>04/24/17</ServiceDate> <MNE>ESINDI</MNE> < OrderingPhy>Ivan Serra M.D.</OrderingPhy> <OrderingPhyMNE>f rep ord dr krause</OrderingPhyMNE> <DictatingPhyMNE>f rep dict dr mne</DictatingPhyMNE> < CCListMNE>f rep ct mne</CCListMNE> <AdmittingPhyMNE>f pt admit dr krause</ AdmittingPhyMNE> <AttendingPhyMNE>f pt attend dr krause</AttendingPhyMNE> <ConsultingPhyMNE>f pt consult dr krause</ConsultingPhyMNE> <FamilyPhyMNE>f pt fam dr krause</FamilyPhyMNE> <OtherPhyMNE>f pt other dr krause</OtherPhyMNE> < PrimaryPhyMNE>f pt prim care dr krause</PrimaryPhyMNE> <ReferringPhyMNE>f pt referring dr krause</ReferringPhyMNE> Patient Name: DELISA CARR Unit Number: [id number] Dictated: 04/24/171733 Transcribed: 04/24/171733 ARG Printed Date/Time: [~ rep prt dt]/[~ rep prt tm] [~ rep ct labl] - [~ rep ct ivnm] [facility] [place] [address] Dictated: 04/24/171733 Transcribed: 04/24/171733 ARG Printed Date/Time: [~ rep prt dt]/[~ rep prt tm] [~ rep ct labl] - [~ rep ct ivnm] BILIARY ULTRASOUND CLINICAL HISTORY: Elevated LFTs COMPARISON STUDY: 05/31/2014 FINDINGS: The pancreas appears sonographically normal. The gallbladder appears sonographically normal. The liver appears sonographically normal. There is no ductal dilatation. The common bile duct measures 4 mm. There is no significant right-sided hydronephrosis. IMPRESSION: Normal biliary ultrasound. Electronically signed by: Steve Lorenzo M.D. 04/24/2017 5:35 PM Dictated Date/Time: 04/24/2017 5:34 PM The status of this report is Signed. Draft = Not yet reviewed or approved by Radiologist. Signed = Reviewed and approved by Radiologist. <AttendingPhy>Flavio Bernabe M.D.</AttendingPhy> <FamilyPhy>Marci Luna D.O.</FamilyPhy> <PrimaryPhy>Grine, Marci M.,D.O.</PrimaryPhy> <UnitNumber> [id number]</UnitNumber> <VisitNumber>[id number]</VisitNumber> <PatientName> DELISA CARR</PatientName> <DateOfBirth>1980</DateOfBirth> <Location> [facility]</Location> <ServiceDate>04/24/17</ServiceDate> <MNE>ESINDI</MNE> < OrderingPhy>Ivan Serra M.D.</OrderingPhy> <OrderingPhyMNE>f rep ord dr krause</OrderingPhyMNE> <DictatingPhyMNE>f rep dict dr krause</DictatingPhyMNE> < CCListMNE>f rep ct [place]</CCListMNE> <AdmittingPhyMNE>f pt admit dr krause</ AdmittingPhyMNE> <AttendingPhyMNE>f pt attend dr krause</AttendingPhyMNE> <ConsultingPhyMNE>f pt consult dr krause</ConsultingPhyMNE> <FamilyPhyMNE>f pt fam dr krause</FamilyPhyMNE> <OtherPhyMNE>f pt other dr krause</OtherPhyMNE> < PrimaryPhyMNE>f pt prim care dr krause</PrimaryPhyMNE> <ReferringPhyMNE>f pt referring dr krause</ReferringPhyMNE> Impression Assessment and Plan Rhabdomyolysis--CK is elevated at 22,567. She'll be admitted to the medical floor and aggressively hydrated with IV fluids. We'll follow serial CK enzymes. Abnormal liver enzymes--AST was 513, ALT was 149. Ultrasound of liver was normal. We will follow serial transaminases. Asthma/allergy--continue her usual cetirizine 10 mg by mouth daily. Change Nasonex to Flonase for formulary interchange, and continue Spiriva HandiHaler 1 inhalation every morning. Change to Dulera 200/5 to Symbicort 160/4.5. Ovarian cysts--continue norethindrone 5 mg by mouth daily. Level of Care Med/Surg Advanced Directives Existing Advance Directive: No Existing Living Will: No Existing Power of Manager Floor: No Resuscitation Status FULL RESUSCITATION VTE Prophylaxis VTE Risk Assessment Done? Y/N: Yes Risk Level: Moderate Given or contraindicated: SCD's Social Service Consult None Apply
[2017-04-24] MEDS ORDERED: CETIRIZINE HCL 10 MG TAB PO SCH (21:00)
[2017-04-24 23:19] VITALS: BP 106/72; PULSE 74; TEMP 37.1; O2SAT 98
[2017-04-25] MEDS: NSS + 20MEQ KCL 1000ML 1,000 ML IV SCH ×3 (05:33→14:50)
[2017-04-25 07:25] VITALS: BP 115/77; PULSE 85; TEMP 36.7; O2SAT 97
[2017-04-25 08:39] LABS: PROTHROMBIN TIME (PATIENT) 10.3 SECONDS (9.0-12.0)
[2017-04-25 08:57] LABS: BUN/CREATININE RATIO 12.3 (10-20); CREATININE 0.75 mg/dl (0.60-1.20); MAGNESIUM 1.9 mg/dl (1.8-2.4); POTASSIUM 3.9 mmol/L (3.5-5.1)
[2017-04-25] MEDS ORDERED: TIOTROPIUM BROMIDE 5 PUFF/90 MCG INH INH SCH (09:00)
[2017-04-25] MEDS ORDERED: CETIRIZINE HCL 10 MG TAB PO SCH (09:00)
[2017-04-25] MEDS ORDERED: NORETHINDRONE ACETATE 5 MG TAB PO SCH (09:00)
[2017-04-25] MEDS ORDERED: FLUTICASONE PROPIONATE NA SPR 16 GM BTL SCH (09:00)
[2017-04-25 09:01] LABS: CALCIUM 8.6 mg/dl (8.5-10.1)
[2017-04-25 09:21] LABS: HEMATOCRIT 40.6 % (37-47); MEAN CORPUSCULAR HEMOGLOBIN 33.7 pg (25-34); MEAN PLATELET VOLUME 12.7 fL (7.4-10.4); PLATELET COUNT 104 K/uL (130-400); RED BLOOD COUNT 3.98 M/uL (4.2-5.4); WHITE BLOOD COUNT 3.14 K/uL (4.8-10.8)
[2017-04-25 09:22] LABS: BASO % 0.3 %; BASO ABS # 0.01 K/uL (0-0.2); COMPLETE YES; LYMPH % 30.3 %; LYMPH ABS # 0.95 K/uL (1.2-3.4); MONO % 4.8 %; NEUT % 63.6 %; PLT ESTIMATE DECREASED
[2017-04-25 15:10] LABS: ALT/SGPT 128 U/L (12-78); AST/SGOT 372 U/L (15-37)
[2017-04-25 15:21] VITALS: BP 107/59; PULSE 70; TEMP 36.9; O2SAT 100
--- NOTE | 2017-04-25 16:25 | Discharge Instructions ---
Discharge Instructions Date of Service Apr 25, 2017. Admission Reason for Admission: Abnormal Liver Enzymes, Rhabdomyolysis Discharge Discharge Diagnosis / Problem: Possible myositis (weakness, elevated CK), transaminitis (resolving) Discharge Goals Goal(s): Diagnostic testing (testing by rheumatology), Specific goals (follow up with rheumatology) Activity Recommendations Activity Limitations: per Instructions/Follow-up section Lifting Limitations: gradually increase as tolerated Exercise/Sports Limitations: gradually increase as tolerated (I would recommend resting for a week, gradually increase activity after that point) May Resume Sexual Activity: when tolerated Shower/Bathe: no limitations Driving or Machine Use: no limitations . Instructions / Follow-Up Instructions / Follow-Up Medications: no changes In summary, I would suspect possible myositis given this is your second presentation with muscle pain, weakness, elevated creatine kinase levels. This diagnosis typically requires imaging (MRI) and possible muscle biopsy. There are also blood tests to look for antibodies. This work up can be done outpatient. There was no evidence of kidney dysfunction with the elevated muscle enzymes. Stay well hydrated after discharge Your liver enzymes trended down and your liver ultrasound was normal, likely attributed to elevated muscle enzymes. FOLLOW UP - Dr. Luna in 5-7 days, want you to get repeat CK and AST/ALT levels on 04/27 and 04/29, call Dr. Luna's office for those orders, I can give you a script to take - referral to Rheumatology, Morenita Lainez, Wednesday 05/02, you can cancel this appointment if you are able to get in with [facility] soon (2-3 weeks), I will leave it up to your discretion Current Hospital Diet Patient's current hospital diet: Regular Diet Discharge Diet Recommended Diet: Regular Diet (drink lots of fluid to keep hydrated) Pending Studies Studies pending at discharge: no Laboratory Results Last 24 Hours Test 04/24/17 16:22 04/24/17 20:17 04/24/17 23:59 04/25/17 08:15 Ethyl Alcohol mg/dL < 3.0 mg/dl Bedside Glucose 105 mg/dl Total Creatine Kinase 63199 U/L 9342 U/L White Blood Count 3.14 K/uL Red Blood Count 3.98 M/uL Hemoglobin 13.4 g/dL Hematocrit 40.6 % Mean Corpuscular Volume 102.0 fL Mean Corpuscular Hemoglobin 33.7 pg Mean Corpuscular Hemoglobin Concent 33.0 g/dl Platelet Count 104 K/uL Mean Platelet Volume 12.7 fL Neutrophils (%) (Auto) 63.6 % Lymphocytes (%) (Auto) 30.3 % Monocytes (%) (Auto) 4.8 % Eosinophils (%) (Auto) 1.0 % Basophils (%) (Auto) 0.3 % Neutrophils # (Auto) 2.00 K/uL Lymphocytes # (Auto) 0.95 K/uL Monocytes # (Auto) 0.15 K/uL Eosinophils # (Auto) 0.03 K/uL Basophils # (Auto) 0.01 K/uL RDW Standard Deviation 47.7 fL RDW Coefficient of Variation 12.7 % Immature Granulocyte % (Auto) 0.0 % Immature Granulocyte # (Auto) 0.00 K/uL Platelet Estimate DECREASED Prothrombin Time 10.3 SECONDS Prothromb Time International Ratio 1.0 Activated Partial Thromboplast Time 25.8 SECONDS Partial Thromboplastin Ratio 1.0 Sodium Level 144 mmol/L Potassium Level 3.9 mmol/L Chloride Level 110 mmol/L Carbon Dioxide Level 26 mmol/L Anion Gap 8.0 mmol/L Blood Urea Nitrogen 9 mg/dl Creatinine 0.75 mg/dl Est Creatinine Clear Calc Drug Dose 95.7 ml/min Estimated GFR () 117.2 Estimated GFR (Non- 101.1 BUN/Creatinine Ratio 12.3 Random Glucose 124 mg/dl Calcium Level 8.6 mg/dl Magnesium Level 1.9 mg/dl Total Bilirubin 0.3 mg/dl Direct Bilirubin 0.1 mg/dl Aspartate Amino Transf (AST/SGOT) 349 U/L Alanine Aminotransferase (ALT/SGPT) 119 U/L Alkaline Phosphatase 45 U/L Total Protein 6.3 gm/dl Albumin 3.3 gm/dl Test 04/25/17 14:19 Aspartate Amino Transf (AST/SGOT) 372 U/L Alanine Aminotransferase (ALT/SGPT) 128 U/L Total Creatine Kinase 9105 U/L Medical Emergencies . Who to Call and When: Medical Emergencies: If at any time you feel your situation is an emergency, please call 911 immediately. . Non-Emergent Contact Non-Emergency issues call your: Primary Care Provider Call Non-Emergent contact if: your pain is worsening, you have any medication questions . . "Provider Documentation" section prepared by Sukhdeep Kapadia. . VTE Core Measure Inpt VTE Proph given/why not?: SCD's [place] Drug Monitoring Program Search Results: no issues identified
[2017-04-25 16:31] VITALS: BP 107/59; PULSE 70; TEMP 36.9; O2SAT 100
--- NOTE | 2017-04-26 07:48 | Discharge Summary ---
Discharge Summary Date of Service Apr 25, 2017. 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 Problems/Secondary Diagnoses: Transaminitis Leg pain and weakness Seasonal allergies Ovarian cysts Immunizations: Have You Had Influenza Vaccine: Unknown History of Tetanus Vaccine?: Unknown Procedures: none Consultations: none Medication Reconciliation Continued Medications: Cetirizine (Zyrtec) 10 Mg Tab 10 MG PO DAILY, TAB Mometasone Furoate-Formoterol (Dulera 200/5 Mcg) 1 Aer Aer 2 PUFFS INH BID PRN for Shortness of Breath for 30 Days, #13 GM 3 Refills Norethindrone (Aygestin) 5 Mg Tab 5 MG PO DAILY, TAB Tiotropium Hawi (Spiriva Handihaler) 30 Puff/540 Mcg Aerp 1 CAP INH DAILY, INHALER [Nasonex] () 1 SPRAY NA DAILY Discharge Exam Patient seen in the morning on 04/25, she was feeling significant improvement in her leg pain but still had a degree of swelling and weakness. She was able to ambulate without difficulty, no loss of balance, in fact she was walking laps around the nursing unit. I reviewed her lab work with her directly, her CK was down to 9,000 and her AST/ALT were also trending down. She was eating well, no difficulty breathing and she was making a large amount of urine attributed to her aggressive IV fluids. She wanted to go home and follow up with her PCP. I suggested we wait until the afternoon and repeat her lab work. In the afternoon her CK had gone down by 200 and her AST/ALT were actually up very slightly. I discussed options with her including an inpatient rheumatology consultation verses going home with repeat labs later in the week and a follow up with rheumatology next week. I was able to get her an appointment on Tuesday05/03/17 with [facility] with Dr. Echevarria. She mentioned that her father in law was a retired physician and one of his friends was with [facility] rheumatology, she was considering reaching out to her father in law as well. I told her whatever she decided, it was important to have close follow up to work up this issue appropriately. Review of Systems: Constitutional: + weakness (thigh muscles), No fever, No chills, No sweats, No weight loss, No fatigue, No problem reported Eyes: No worsening of vision, No eye pain, No redness, No discharge, No diplopia, No problem reported ENT: No hearing loss, No unusual epistaxis, No nasal symptoms, No sore throat, No tinnitus, No dental problems, No trouble swallowing, No problem reported Respiratory: No cough, No sputum, No wheezing, No shortness of breath, No dyspnea on exertion, No dyspnea at rest, No hemoptysis, No problem reported Cardiovascular: No chest pain, No orthopnea, No PND, No edema, No claudication, No palpitations, No problem reported Abdomen: No pain, No nausea, No vomiting, No diarrhea, No constipation, No GI bleeding, No problem reported Musculoskeletal: + muscle pain (anterior thighs, medial thighs bilaterally, no other muscle pain), + swelling (proximal thighs, going down since admission) , No joint pain, No calf pain, No problem reported Genitourinary - Female: + urinary frequency (attributed to IV fluids), No dysuria, No urinary urgency, No urinary incontinence, No urinary retention, No hematuria Neurologic: + weakness (mild weakness in thigh muscles), No memory loss, No paralysis, No numbness/tingling, No vertigo, No balance problems, No problem reported Endocrine: No fatigue, No excessive thirst, No excessive urination, No problem reported Hematologic / Lymphatic: No abnormal bleeding/bruising, No clotting problems , No swollen lymph nodes, No night sweats, No problem reported Integumentary: No rash, No itch, No new/changing skin lesions, No color change, No bleeding, No problem reported Physical Exam: General Appearance: WD/WN, no apparent distress Eyes: normal inspection, EOMI, sclerae normal ENT: normal ENT inspection, hearing grossly normal, pharynx normal Neck: supple, no adenopathy, no JVD, trachea midline Respiratory/Chest: chest non-tender, lungs clear, normal breath sounds, no respiratory distress, no accessory muscle use Cardiovascular: regular rate, rhythm, no edema, no gallop, no JVD, no murmur , normal peripheral pulses Abdomen / GI: normal bowel sounds, non tender, soft, no organomegaly Extremities: no calf tenderness, normal capillary refill, no pedal edema, normal range of motion, pelvis stable, + swelling (medial/proximal thighs), + pertinent finding (thigh muscles tender to palpation) 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 Found to have a CPK level of 27,000 as an outpatient and she was instructed to come to the ED. On admission her CPK was 22,567 and her AST was 513, ALT 149. She was admitted to the medical floor, aggressive IV hydration. Renal US was normal. Liver US was also normal. 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 Leigh at [facility] on 05/03 patient may look into a referral to [facility] rheumatology - Transaminitis: no RUQ pain, normal liver US, normal biliary ducts AST and ALT trending down appropriately with IV fluids, likely just a result of the muscle breakdown d/c to home, instructed to drink lots of fluids, repeat labs (CPK, AST and ALT) 2 and 4 days after discharge with results to PCP instructed to avoid any exercise until follow up with rheumatology Total Time Spent: Greater than 30 minutes This includes examination of the patient, discharge planning, medication reconciliation, and communication with other providers. Discharge Instructions Please refer to the electronic Patient Visit Report (Discharge Instructions) for additional information. Follow-Up Dr. Luna in one week Dr. Leigh on 05/03 Additional Copies To Marci Luna D.O.; Enrrique Leigh M.D.
== END 2017-04-25 17:30 | disposition home or self-care (01) | DRG 547 ==
LOC: C.EDB 13:14 → C.MS2W 15:45 → EDBEDREQ 16:22 → ENRESERV 16:49
PROVIDERS: ADMIT Hospitalist; ATTEND Internal Medicine
DX: M33.20 Polymyositis, organ involvement unspecified (principal); R74.0 Nonspecific elevation of levels of transaminase and lactic acid dehydrogenase [LDH]; J45.909 Unspecified asthma, uncomplicated; N83.209 Unspecified ovarian cyst, unspecified side; Z79.899 Other long term (current) drug therapy; R60.0 Localized edema

== ENCOUNTER → 2017-12-06 | Outpatient (CLI) | payer OTHER ==
[~2017-12-06] MED LIST changes: +CETI10TA84 PO; +NASONEX; +NORE5TAB5 PO
--- NOTE | 2017-12-06 12:46 | DIAGNOSTIC IMAGING REPORT ---
TWO VIEW CHEST CLINICAL HISTORY: Cough. Asthma. FINDINGS: PA and lateral chest radiographs are compared to study dated 09/16/2017. The cardiomediastinal silhouette is unremarkable. The lungs and pleural spaces are clear. There is no pneumothorax. The bony thorax appears intact. Nipple shadows project over the lung bases. IMPRESSION: No active disease in the chest. Electronically signed by: Alejandro Brown M.D. 12/06/2017 12:44 PM Dictated Date/Time: 12/06/2017 12:44 PM
== END | disposition home or self-care (01) ==
LOC: C.RAD1850 12:32
PROVIDERS: ATTEND Family Medicine
DX: J45.901 Unspecified asthma with (acute) exacerbation (principal); R05 Cough